=== PATIENT | female | born 1955 | race American Indian/Alaskan Native ===

== ENCOUNTER 2018-03-18 20:04 | Emergency (ER) | payer OTHER ==
[2018-03-18] MEDS ORDERED: NACL 0.9% 1000 ML 3,000 ML ONE (20:16)
[2018-03-18] MEDS ORDERED: ADRENALIN 8 MG in NACL 0.9% 250ML 242 ML IV SCH (20:56)
[2018-03-18] MEDS ORDERED: NACL 0.9% 1000 ML 1,000 ML IV ONE (20:57)
[2018-03-18] MEDS ORDERED: LEVOPHED 8 MG in NACL 0.9% 250ML 242 ML IV SCH (21:00)
--- NOTE | 2018-03-18 21:26 | Emergency Department Report ---
ED CPR HPI - General Chief Complaint: Cardiac Arrest/CPR Stated Complaint: CARDIAC ARREST Time Seen by Provider: 03/18/18 21:13 Source: EMS Mode of arrival: Stretcher Limitations: Other - History of Present Illness Initial Comments: 63-year-old female presents to the emergency department in cardiac arrest. EMS call was for abdominal pain but when EMS went outside to get the stretcher they returned to find her having agonal respirations and then she appeared to stop breathing and lose her pulse. They put in a Combitube, started chest compressions and she received one dose of epinephrine as they brought her to the emergency department. They say that she remained in PEA the entire time. Does not appears that the patient has been here before and obviously the patient is a poor historian secondary to her acute medical condition and therefore we do not have any past medical history. They did check a blood sugar and said it was about 230. - Related Data Allergies Allergy/AdvReac Type Severity Reaction Status Date / Time Unable to Assess Allergy Verified 03/18/18 20:29 ED Review of Systems ROS: Stated complaint: CARDIAC ARREST Other details as noted in HPI Comment: Unobtainable due to pts medical conditions ED Past Medical Hx - Past Medical History Previous Medical History?: No - Surgical History Past Surgical History?: No - Social History Smoking Status: Never Smoker ED Physical Exam - General Limitations: Other - Other Other exam information: GENERAL: Patient is ill-appearing and unresponsive. HENT: Normocephalic. Atraumatic. Patient has moist mucous membranes. There is a Combitube in place with some gastric secretion seen creeping up the 2. EYES: Pupils are fixed and dilated. NECK: Supple. Trachea appears midline. CHEST/LUNGS: There are no spontaneous respirations. HEART/CARDIOVASCULAR: There are no spontaneous heart sounds. ABDOMEN: Abdomen is soft. There is no abdominal distention. Obese habitus. SKIN: Skin is cool but dry. NEURO: Unresponsive. Does not withdraw to painful stimuli. Does not follow any commands. MUSCULOSKELETAL: There is no obvious deformity. There is no evidence of acute injury. No palpable femoral or radial pulses. ED Course Vital Signs 03/18/18 03/18/18 03/18/18 20:30 20:36 20:40 Pulse Rate 119 H 40 L 60 Respiratory 12 90 H 11 L Rate Blood Pressure 140/110 186/130 70/51 O2 Sat by Pulse Oximetry 03/18/18 03/18/18 03/18/18 20:46 20:50 20:56 Pulse Rate 137 H 79 127 H Respiratory 91 H 18 Rate Blood Pressure 70/51 70/51 70/51 O2 Sat by Pulse 100 100 Oximetry 03/18/18 03/18/18 03/18/18 21:00 21:05 21:09 Pulse Rate 63 56 L 54 L Respiratory 11 L 13 Rate Blood Pressure 70/51 67/34 79/45 O2 Sat by Pulse 100 100 Oximetry 03/18/18 03/18/18 03/18/18 21:10 21:15 21:21 Pulse Rate 54 L 76 76 Respiratory 11 L 13 13 Rate Blood Pressure 79/45 94/46 102/66 O2 Sat by Pulse 100 100 Oximetry 03/18/18 03/18/18 03/18/18 21:25 21:31 21:35 Pulse Rate 59 L 62 56 L Respiratory 12 12 16 Rate Blood Pressure 94/46 139/70 111/64 O2 Sat by Pulse 100 99 Oximetry 03/18/18 03/18/18 03/18/18 21:41 21:45 21:51 Pulse Rate 51 L 53 L 51 L Respiratory 16 29 H 18 Rate Blood Pressure 118/51 111/55 97/63 O2 Sat by Pulse 100 100 Oximetry 03/18/18 03/18/18 03/18/18 21:55 22:01 22:05 Pulse Rate 54 L 61 48 L Respiratory 15 21 18 Rate Blood Pressure 97/63 83/52 118/51 O2 Sat by Pulse 98 98 Oximetry 03/18/18 03/18/18 03/18/18 22:11 22:15 22:21 Pulse Rate 46 L 52 L 59 L Respiratory 20 22 22 Rate Blood Pressure 120/93 120/93 120/93 O2 Sat by Pulse 69 L 68 L Oximetry 03/18/18 03/18/18 03/18/18 22:25 22:31 22:35 Pulse Rate 61 59 L 56 L Respiratory 19 24 24 Rate Blood Pressure 120/93 120/93 97/63 O2 Sat by Pulse 68 L Oximetry 03/18/18 03/18/18 03/18/18 22:40 22:45 22:51 Pulse Rate 53 L 53 L 52 L Respiratory 25 H 25 H 19 Rate Blood Pressure 95/50 97/63 97/63 O2 Sat by Pulse Oximetry 03/18/18 03/18/18 03/18/18 22:55 23:01 23:05 Pulse Rate 52 L 53 L 60 Respiratory 25 H 25 H 22 Rate Blood Pressure 97/63 97/63 95/50 O2 Sat by Pulse 100 Oximetry 03/18/18 03/18/18 03/18/18 23:11 23:15 23:21 Pulse Rate 63 60 50 L Respiratory 24 24 24 Rate Blood Pressure 95/50 95/50 95/50 O2 Sat by Pulse Oximetry 03/18/18 03/18/18 03/18/18 23:25 23:31 23:35 Pulse Rate 65 48 L 153 H Respiratory 24 24 Rate Blood Pressure 95/50 95/50 95/50 O2 Sat by Pulse 79 L Oximetry 03/18/18 03/18/18 03/18/18 23:41 23:45 23:51 Pulse Rate 80 88 70 Respiratory 17 12 18 Rate Blood Pressure 95/50 97/27 97/27 O2 Sat by Pulse 93 Oximetry 03/18/18 03/19/18 03/19/18 23:55 00:01 00:05 Pulse Rate 114 H 59 L 57 L Respiratory 16 15 12 Rate Blood Pressure 95/76 95/76 58/22 O2 Sat by Pulse 64 L 99 Oximetry 03/19/18 03/19/18 03/19/18 00:11 00:15 00:21 Pulse Rate 165 H 131 H 59 L Respiratory 84 H 9 L Rate Blood Pressure 58/22 58/22 58/22 O2 Sat by Pulse 77 L 99 89 Oximetry 03/19/18 03/19/18 03/19/18 00:25 00:31 00:35 Pulse Rate 66 Respiratory 19 116 H 30 H Rate Blood Pressure 54/31 54/31 54/31 O2 Sat by Pulse 83 L 74 L 67 L Oximetry - Consultations Consultation #1: 03/19/18 07:45 I've spoken with the machine set up technician regarding the patient's severe acidosis and his recommendation was for giving 3 abscesses of sodium bicarbonate as an IV push followed by an sodium bicarbonate drip "wide open." - ABG Interpretation Ph: [phone] PCO2: 56 PO2: 146 Bicarbonate: 10 Interpretation: respiratory acidosis, metabolic acidosis - Central Line Placement Right Femoral Consent Obtained: emergent situation Time Out Performed: No Patient Placed on Monitor/Pulse Ox: Yes MD Prep: mask, gown, gloves Central Line Prep: Chlorhexidine scrub Ultrasound Used for Placement: Yes Central Line Lumen Inserted: triple Bloods Obtained for Lab: Yes Central Line Position: good blood return, all ports aspirated, flus, sutured in place with nyl Dressing Applied: Tegaderm, sterile gauze/tape Post Procedure X-Ray: tip of catheter in good p Patient Tolerated Procedure: well Complications: none Additional Comments: A gown, gloves, cap and mask were used. The area was cleaned with chlorhexidine multiple times but no drape was used due to the emergent nature. Biopatch was applied. - Intubation Time Out Performed: Yes Sedative: none Laryngoscope: other (glydescope with Mac 4) Size: 4 ET Tube Size: 7.5 Tube Secured Depth (cm): 24 Tube Secured Location: lips Tube Placement Confirmation: visualized tube passing t, equal breath sounds bilat, confirmation by capnometr Patient Tolerated Procedure: well Intubation Complications: none ED Medical Decision Making - Lab Data Result diagrams: 03/18/18 21:13 03/18/18 21:13 - EKG Data -: EKG Interpreted by Me EKG shows normal: sinus rhythm, axis (left axis deviation), intervals, QRS complexes (left bundle branch block), ST-T waves (nonspecific ST-T waves) Rate: normal - EKG Data When compared to previous EKG there are: previous EKG unavailable Interpretation: other (sinus rhythm, left bundle branch block, rate of 69 bpm, nonspecific ST-T waves) - Radiology Data Radiology results: image reviewed interpreted by me: Chest x-ray showed that the ET tube was in appropriate position about 2 cm above the elma. No pneumothorax. There are multiple areas that appear to have some patchy infiltrates concerning for pneumonia and there is some pulmonary vascular congestion. - Medical Decision Making Patient presented in cardiac arrest. She had a Combitube in place and had received one dose of epinephrine and was receiving chest compressions. We immediately placed her on the monitor and she appeared to be in PEA as she did not have any pulse. Chest compressions were continued. She had multiple rounds of ACLS were supervised by myself that included epinephrine and sodium bicarbonate. We eventually had return of spontaneous circulation. At this point the Combitube was replaced with an ET tube. Shortly after this, the patient lost her pulse and once again ACLS protocol commenced. Once again able to get a return of spontaneous circulation. The patient had very low blood pressure so she was given some IV fluid resuscitation but also a right femoral central line was placed so that pressors could be started. She was originally started on dopamine but switched to Levophed. There were multiple times with the patient would have severe bradycardia and eventually would become pulseless and ACLS protocol once again commenced. The patient appeared to respond best to epinephrine when it was given as part of ACLS so the patient was started on an epinephrine drip. At this point she was on Levophed, epinephrine, IV fluid and after an initial 1 hour and 20 minutes of going back and forth between coating and return of spontaneous circulation, the patient appeared to keep her pulse to maintain a sufficient blood pressure 2 proceed with her workup. Labs came back showing significant acidosis. She had a lactic acid level that reached 18 and this may be part of the acidosis. I had spoken with the machine set up technician who recommended bicarbonate drips and pushes. Chest x-ray showed appropriate placement of the ET tube. The rest of the labs showed anemia with hemoglobin of 6.7, thrombocytopenia with 70,000 platelets, some renal insufficiency with a creatinine of 1.8, transaminitis, elevated troponin. Because of the anemia and the hypotension, the patient had 2 units of packed red blood cells ordered and transfused. Throughout the evening, there were multiple further episodes in which the patient would become very hypotensive, bradycardic, and loose her pulse. We would go back in and commenced ACLS protocol and usually after one or 2 rounds with epinephrine given and chest compressions, the patient would have return of spontaneous circulation. Eventually, vasopressin was added and the patient was on a total of 3 pressors, on top of the IV fluid and PRBC transfusion/resuscitation. The patient's and daughter were bedside throughout most of the evening and for multiple resuscitations. A little after midnight, the patient once again had some recurring episodes where she will pulseless but this time she did not appear to respond to the epinephrine given or any chest compressions and she maintains in asystole. At this point there was no further intervention to be done and time of was called at 0038. Family was notified and given further opportunity to see the patient if they chose to do so. - Differential Diagnosis dysrhythmia, CT, PE, dissection Critical Care Time: Yes Critical care time in (mins) excluding proc time.: 75 Critical care attestation.: If time is entered above; I have spent that time in minutes in the direct care of this critically ill patient, excluding procedure time. Critical care time was spent on this patient during her initial evaluation, multiple re-evaluations, ordering and interpretations of labs and imaging, multiple discussions with the patient's family, titration of pressors, IV fluid resuscitation, ordering of medications, supervision of ACLS protocol. This does not include the time spent doing the central line and intubation procedure Critical Care Time: 75 minutes ED Disposition Clinical Impression: Cardiac arrest, Metabolic acidosis, Renal insufficiency, Elevated troponin Respiratory failure Qualifiers: Chronicity: acute Respiratory failure complication: hypoxia and hypercapnia Qualified Code(s): J96.01 - Acute respiratory failure with hypoxia; J96.02 - Acute respiratory failure with hypercapnia Hypotension Qualifiers: Hypotension type: unspecified hypotension type Qualified Code(s): I95.9 - Hypotension, unspecified Disposition: DC-20 Is pt being admited?: No Referrals: PRIMARY CARE, [Primary Care Provider] - 3-5 Days Time of Disposition: 02:00
[2018-03-18 21:29] LABS: Alanine Aminotransferase 218 units/L (7-56); BUN/Creatinine Ratio 11; Blood Urea Nitrogen 20 mg/dL (7-17); Calcium 6.5 mg/dL (8.4-10.2); Hemolysis Index 20
[2018-03-18 21:30] LABS: Bilirubin,Direct < 0.2 mg/dL (0-0.2)
[2018-03-18] MEDS ORDERED: VASELINE LIP THERAPY TP PRN (21:33)
[2018-03-18] MEDS ORDERED: ARTIFICIAL TEARS OPHTH OINT OU PRN (21:33)
[2018-03-18] MEDS ORDERED: HumuLIN R IV ONE (21:35)
[2018-03-18 21:36] LABS: Mean Corpuscular HGB Conc 28 % (30-34); Mean Corpuscular Hemoglobin 27 pg (28-32); Mean Corpuscular Volume 95 fl (79-97); Red Cell Distribution Width 15.3 % (13.2-15.2)
[2018-03-18] MEDS ORDERED: Vasostrict 20 UNIT in NACL 0.9% 100 ML IV SCH (22:00)
[2018-03-18] MEDS ORDERED: SODIUM BICARBONATE 150 MEQ in D5W 1,000 ML IV ONE (22:02)
[2018-03-18] MEDS ORDERED: SODIUM BICARBONATE IV ONE ×2 (22:02→23:36)
[2018-03-18 22:06] LABS: Hematocrit 23.7 % (30.3-42.9); Hemoglobin 6.7 gm/dl (10.1-14.3)
[2018-03-18] MEDS ORDERED: NACL 0.9% 500 ML 500 ML IV ONE (22:09)
[2018-03-18 22:11] LABS: Basophils % (Manual) 0 % (0.0-1.8); Total Cells Counted 100
[2018-03-18 22:12] LABS: Band Neutrophils # (Manual) 0.5 K/mm3; Eosinophils % (Manual) 0 % (0.0-4.3)
[2018-03-18 22:13] LABS: Anisocytosis 1+; Hypochromasia 1+; Platelet Estimate Appears Decreased; Poikilocytosis 1+
[2018-03-18 22:15] LABS: Ovalocytes 1+
[2018-03-18 22:21] LABS: Platelet Count 71 K/mm3 (140-440)
--- NOTE | 2018-03-18 22:39 | XRay Report ---
FINAL REPORT PROCEDURE: XR CHEST 1V AP TECHNIQUE: Chest radiograph anteroposterior view. CPT 07151 HISTORY: Endotracheal tube placement. COMPARISON: No prior studies are available for comparison. FINDINGS: Heart: Normal. Mediastinum/Vessels: Mediastinal appears mildly widened. Left hilar prominence. Lungs/Pleural space: Right upper lobe and perihilar opacities with bronchial wall thickening. Similar findings in the left perihilar region and left lower lobe. Bony thorax: Mild degenerative changes of the spine. Life support devices: Endotracheal tube tip 2.6 cm above the elma. Enteric tube projects below the diaphragm, distal aspect not well seen on this examination. IMPRESSION: Right upper lobe and perihilar and left perihilar and lower lobe opacities. Bronchial wall thickening. Consider asymmetric pulmonary edema with atelectasis, cannot exclude pneumonitis/bronchitis. Mediastinum appears widened. Left hilar prominence. This could be related to patient rotation. Recommend attention on followup radiographs if there is concern for mediastinal process such as adenopathy or vascular etiology. Also consider chest CT if there is strong clinical concern. Endotracheal tube tip 2.6 cm above the elma. Enteric tube projects below the diaphragm, distal tip not seen on this exam. Consider correlation with abdominal radiograph if there is continued clinical concern.
[2018-03-18 22:43] LABS: Chol/HDL Ratio 2.96 %
[2018-03-18] MEDS ORDERED: ZOSYN/NS 4.5GM/100ML 4.5 GM/100 ML VIAL IV SCH (23:00)
[2018-03-18] MEDS ORDERED: CALCIUM CHLORIDE IV ONE (23:36)
[2018-03-18] MEDS ORDERED: ADRENALIN ONE (23:36)
[2018-03-19] MEDS ORDERED: NACL 0.9% 1000 ML 1,000 ML IV ONE (00:13)
[2018-03-19] MEDS ORDERED: Vasostrict 20 UNIT in NACL 0.9% 100 ML IV SCH (01:00)
[2018-03-19] MEDS: KCL 10MEQ/100ML 10 MEQ/100 ML BAG IV SCH ×2 (01:59→02:00)
[2018-03-19 02:38] VITALS: BP 54/31
== END 2018-03-19 03:05 ==
LOC: ED 20:04
DX: I46.9 Cardiac arrest, cause unspecified (principal); J96.90 Respiratory failure, unspecified, unspecified whether with hypoxia or hypercapnia; I95.9 Hypotension, unspecified; E87.2 Acidosis; N28.9 Disorder of kidney and ureter, unspecified
CPT/HCPCS: 31500; 36415; 36430; 36556; 71045; 80053; 80061; 80074; 82140; 82803; 84484; 85007; 85025; 86850; 86900; 86901; 86920; 87040; 92950; 93005; 93010; 96365; 96366; 96368; 99291; J0171; J3480; J7030; J7050; J7070; P9016; 94002; 96375; 99292